=== PATIENT | female | born 1960 | race African-American/Black ===

== ENCOUNTER 2023-05-14 21:49 | Emergency (ER) | payer OTHER ==
[2023-05-14 22:35] VITALS: BMI 27.0
[2023-05-14] MEDS ORDERED: KETOROLAC TROMETHAMINE 30 MG/1 ML VIAL IM ONE (22:49)
[2023-05-14] MEDS ORDERED: KETOROLAC TROMETHAMINE 30 MG/1 ML VIAL ONE (22:56)
[2023-05-14] MEDS ORDERED: morphine CARPU-JECT 4 MG/1 ML DISP.SYRIN IVPUSH ONE (23:51)
[2023-05-15] MEDS ORDERED: morphine SULFATE 4 MG/ML VIAL ONE (00:28)
[2023-05-15 01:15] VITALS: BP 145/77; PULSE 82; RESP 17; TEMP 98.3
== END 2023-05-15 01:40 | disposition home or self-care (01) ==
LOC: JER 21:49
PROC: 3E033GC Introduction of Other Therapeutic Substance into Peripheral Vein, Percutaneous Approach (ICD-10-PCS; principal; 2023-05-14)
PROC: 3E0233Z Introduction of Anti-inflammatory into Muscle, Percutaneous Approach (ICD-10-PCS; 2023-05-14)
DX: M25.562 Pain in left knee (principal); R22.42 Localized swelling, mass and lump, left lower limb; W01.0XXA Fall on same level from slipping, tripping and stumbling without subsequent striking against object, initial encounter; Y92.009 Unspecified place in unspecified non-institutional (private) residence as the place of occurrence of the external cause; Y93.01 Activity, walking, marching and hiking
CPT/HCPCS: 73564-TC-LT-FY; 99284-25

== ENCOUNTER 2023-07-25 18:02 | Emergency (ER) | payer OTHER ==
[2023-07-25 18:13] VITALS: BP 146/69; PULSE 95; RESP 18; TEMP 98; BMI 28.5
[2023-07-25] MEDS ORDERED: FAMOTIDINE 20 MG/50 ML IVPB 20 MG/50 ML MG IVPB ONE (20:54)
[2023-07-25] MEDS ORDERED: ACETAMINOPHEN 1000 MG/100 ML BAG IVPB ONE (20:54)
[2023-07-25] MEDS ORDERED: SODIUM CHLORIDE 1,000 ML IV STA (20:54)
[2023-07-25] MEDS ORDERED: FAMOTIDINE 10 MG/ML VIAL IVPB ONE (21:04)
[2023-07-25] MEDS ORDERED: ACETAMINOPHEN INJECTION 100 ML IVPB ONE (21:04)
[2023-07-25 21:19] LABS: EOS % 0.7 % (0-4.5); HEMOGLOBIN 14.2 GM/dL (10.7-15.3); LYMPH % 29.1 % (8-40); MCH 32.3 pg (25.7-33.7); MCHC 33.8 g/dl (32.0-36.0); MEAN CELL VOLUME 95.4 fl (80-96); MEAN PLT VOLUME 7.3 fl (7.5-11.1); NEUT % 61.2 % (42.8-82.8); PLATELET COUNT 198 10^3/uL (134-434); RDW 14.1 % (11.6-15.6); WHITE BLOOD COUNT 8.1 K/mm3 (4.0-10.0)
[2023-07-25 21:22] LABS: EPI CELLS 10 /uL (0-25.1); HYALINE CASTS 1 /uL (0-3.1); PH,URINE 5.5 (5.0-8.0); URINE APPEARANCE CLEAR; URINE BACTERIA 58 /uL (0-1359); URINE BILIRUBIN NEGATIVE (NEGATIVE); URINE COLOR YELLOW; URINE GLUCOSE (UA) NEGATIVE (NEGATIVE); URINE KETONE 1+ (NEGATIVE); URINE LEUK ESTERASE NEGATIVE (NEGATIVE); URINE NITRITE NEGATIVE (NEGATIVE); URINE PROTEIN 1+ (NEGATIVE); URINE RBC 14 /uL (0-23.9); URINE WBC 27 /uL (0-25.8)
[2023-07-25 21:26] LABS: INR 1.13 (0.83-1.09); PROTHROMBIN TIME (PATIENT) 13.1 SEC (9.7-13.0)
[2023-07-25 21:29] LABS: ACTIVATED PTT 32.3 SECONDS (25.2-36.5)
[2023-07-25 21:50] LABS: POTASSIUM 3.6 mmol/L (3.5-5.1)
[2023-07-25 21:52] LABS: BLOOD UREA NITROGEN 14.8 mg/dL (7-18); CALCIUM 9.1 mg/dL (8.5-10.1)
[2023-07-25 21:54] LABS: ALBUMIN 4.2 g/dl (3.4-5.0)
[2023-07-25 21:57] LABS: BILIRUBIN,TOTAL 0.6 mg/dL (0.2-1); TOT PROT 7.8 g/dl (6.4-8.2)
[2023-07-26] MEDS ORDERED: DEXTROSE 5%-NORMAL SALINE 1,000 ML IV ONE (01:05)
[2023-07-26] MEDS ORDERED: MAG HYDROX/AL HYDROX/SIMETH 30 ML UNIT-DOSE CUP PO ONE (01:06)
[2023-07-26] MEDS ORDERED: MAG HYDROX/AL HYDROX/SIMETH 30 ML UNIT-DOSE CUP ONE (01:28)
== END 2023-07-26 02:35 | disposition left against medical advice (07) ==
LOC: JER 18:02
PROC: 3E033GC Introduction of Other Therapeutic Substance into Peripheral Vein, Percutaneous Approach (ICD-10-PCS; principal; 2023-07-25)
PROC: 3E033NZ Introduction of Analgesics, Hypnotics, Sedatives into Peripheral Vein, Percutaneous Approach (ICD-10-PCS; 2023-07-25)
PROC: 3E0337Z Introduction of Electrolytic and Water Balance Substance into Peripheral Vein, Percutaneous Approach (ICD-10-PCS; 2023-07-25)
PROC: 3E0337Z Introduction of Electrolytic and Water Balance Substance into Peripheral Vein, Percutaneous Approach (ICD-10-PCS; 2023-07-26)
DX: R11.2 Nausea with vomiting, unspecified (principal); R10.11 Right upper quadrant pain; R10.13 Epigastric pain; K59.00 Constipation, unspecified; Z20.822 Contact with and (suspected) exposure to COVID-19
CPT/HCPCS: 0241U-QW; 36415; 74176-TC; 76705-TC; 80053; 81003; 83690; 84484; 85025; 85610; 85730; 87086; 93005; 93010; 99285-25

== ENCOUNTER 2023-11-22 19:53 | Emergency (ER) | payer MEDICARE, OTHER ==
[2023-11-22 19:58] VITALS: BMI 25.9
[2023-11-22] MEDS ORDERED: IOHEXOL (OMNIPAQUE PO) 12 MG/ML - 500 ML BOTTLE PO ONE (20:50)
[2023-11-22 21:48] LABS: BASO % 1.3 % (0-2.0); EOS % 2.1 % (0-4.5); HEMATOCRIT 38.6 % (32.4-45.2); HEMOGLOBIN 12.7 GM/dL (10.7-15.3); LYMPH % 39.8 % (8-40); MCH 31.2 pg (25.7-33.7); MCHC 32.9 g/dl (32.0-36.0); MEAN CELL VOLUME 94.8 fl (80-96); MEAN PLT VOLUME 7.9 fl (7.5-11.1); MONO % 6.8 % (3.8-10.2); PLATELET COUNT 263 10^3/uL (134-434); RBC 4.07 M/mm3 (3.60-5.2); RDW 16.3 % (11.6-15.6)
[2023-11-22 21:49] LABS: PH,URINE 6.5 (5.0-8.0); URINE APPEARANCE CLEAR; URINE BILIRUBIN NEGATIVE (NEGATIVE); URINE COLOR YELLOW; URINE GLUCOSE (UA) NEGATIVE (NEGATIVE); URINE KETONE NEGATIVE (NEGATIVE); URINE LEUK ESTERASE NEGATIVE (NEGATIVE); URINE NITRITE NEGATIVE (NEGATIVE); URINE PROTEIN NEGATIVE (NEGATIVE); URINE UROBILINOGEN 0.2 mg/dL (0.2-1.0)
[2023-11-22] MEDS ORDERED: ACETAMINOPHEN INJECTION 100 ML IVPB ONE (21:51)
[2023-11-22] MEDS: ACETAMINOPHEN 1000 MG/100 ML BAG IVPB ONE (21:58)
[2023-11-22] MEDS: LACTATED RINGERS SOLUTION 1000 ML INFUS.BAG IV ONE (21:58)
[2023-11-22 22:09] LABS: CHLORIDE 108 mmol/L (98-107); SODIUM 137 mmol/L (136-145)
[2023-11-22 22:12] LABS: BLOOD UREA NITROGEN 9.9 mg/dL (7-18); CO2 25 mmol/L (21-32); GLUCOSE,RANDOM 78 mg/dL (74-106)
[2023-11-22 22:14] LABS: MAGNESIUM 1.8 mg/dL (1.8-2.4)
[2023-11-22 22:15] LABS: CREATININE 0.8 mg/dL (0.55-1.3); SGOT/AST 90 U/L (15-37)
[2023-11-22 22:16] LABS: TOT PROT 7.1 g/dl (6.4-8.2)
[2023-11-22 22:18] LABS: ALK PHOS 142 U/L (45-117)
[2023-11-22 22:23] LABS: ANION GAP 3 mmol/L (4-13); BILIRUBIN,TOTAL 0.4 mg/dL (0.2-1); POTASSIUM 6.5 mmol/L (3.5-5.1); SGPT/ALT 22 U/L (13-61)
[2023-11-22 23:21] LABS: POTASSIUM 3.4 mmol/L (3.5-5.1)
[2023-11-22 23:22] LABS: CALCIUM 8.7 mg/dL (8.5-10.1)
[2023-11-22 23:23] LABS: ALBUMIN 2.8 g/dl (3.4-5.0)
[2023-11-22 23:26] LABS: CREATININE 0.6 mg/dL (0.55-1.3)
[2023-11-22 23:27] LABS: BLOOD UREA NITROGEN 8.8 mg/dL (7-18)
[2023-11-22 23:28] LABS: BILIRUBIN,TOTAL 0.2 mg/dL (0.2-1)
[2023-11-23] MEDS ORDERED: HYDROmorphone HCl 2 MG/ML VIAL ONE ×2 (00:43→02:57)
[2023-11-23] MEDS: HYDROmorphone HCl 2 MG/ML VIAL IVPUSH ONE ×2 (00:49→03:06)
[2023-11-23 04:55] VITALS: BP 118/76; PULSE 62; RESP 18; TEMP 97.8
== END 2023-11-23 05:21 | disposition short-term general hospital (02) ==
LOC: JER 19:53
PROC: 3E033NZ Introduction of Analgesics, Hypnotics, Sedatives into Peripheral Vein, Percutaneous Approach (ICD-10-PCS; principal; 2023-11-22)
PROC: 3E033GC Introduction of Other Therapeutic Substance into Peripheral Vein, Percutaneous Approach (ICD-10-PCS; 2023-11-23)
PROC: 3E033GC Introduction of Other Therapeutic Substance into Peripheral Vein, Percutaneous Approach (ICD-10-PCS; 2023-11-23)
DX: K56.609 Unspecified intestinal obstruction, unspecified as to partial versus complete obstruction (principal); R10.9 Unspecified abdominal pain; Z20.822 Contact with and (suspected) exposure to COVID-19
CPT/HCPCS: 36415; 74176-TC; 80053; 81003; 83605; 83690; 83735; 85025; 87077; 87086; 87635; 93005; 93010; 96374; 96375; 96376; 99285-25; J0131

== ENCOUNTER 2024-05-06 17:01 | Emergency (ER) | payer MEDICARE ==
[2024-05-06 17:09] VITALS: BP 131/76; PULSE 98; RESP 18; TEMP 98.2; BMI 24.8
[2024-05-06] MEDS ORDERED: KETOROLAC TROMETHAMINE 15 MG/ML VIAL ONE (18:23)
[2024-05-06] MEDS ORDERED: METHOCARBAMOL 500 MG TABLET ONE (18:23)
[2024-05-06] MEDS ORDERED: LIDOCAINE 4% PATCH TP ONE (18:23)
[2024-05-06] MEDS: ACETAMINOPHEN 325 MG TABLET (FP) PO ONE (18:30)
[2024-05-06] MEDS ORDERED: ACETAMINOPHEN 325 MG TABLET (FP) ONE (18:33)
[2024-05-06] MEDS ORDERED: KETOROLAC TROMETHAMINE 30 MG/1 ML VIAL IM ONE (19:12)
[2024-05-06] MEDS ORDERED: LORazepam 0.5 MG TABLET ONE (19:15)
[2024-05-06] MEDS: METHOCARBAMOL 500 MG TABLET PO ONE (19:21)
[2024-05-06] MEDS: LIDOCAINE 5% TOPICAL PATCH TP ONE (19:21)
[2024-05-06] MEDS: KETOROLAC TROMETHAMINE 15 MG/ML VIAL IM ONE ×2 (19:21→19:22)
[2024-05-06] MEDS: LORazepam 0.5 MG TABLET PO ONE (19:21)
[2024-05-06] MEDS: SODIUM CHLORIDE 0.9% 500 ML INFUS.BAG IV ONE (19:22)
[2024-05-06] MEDS: KETOROLAC TROMETHAMINE 15 MG/ML VIAL IVPUSH ONE (19:23)
[2024-05-06] MEDS ORDERED: LIDOCAINE PATCH REMOVAL MC SCH (22:00)
== END 2024-05-06 19:47 | disposition left against medical advice (07) ==
LOC: JER 17:01
PROC: 3E0133Z Introduction of Anti-inflammatory into Subcutaneous Tissue, Percutaneous Approach (ICD-10-PCS; principal; 2024-05-06)
DX: M62.838 Other muscle spasm (principal); R07.9 Chest pain, unspecified
CPT/HCPCS: 96372; 99284-25